=== PATIENT | male | born 1970 | race Hispanic/Latino ===

== ENCOUNTER 2024-12-15 14:22 | Emergency (ER) | payer SELFPAY ==
[~2024-12-15] VITALS: Ht 175.3 cm; Wt 81.6 kg
[2024-12-15] MEDS ORDERED: DIPH50CA38 PO (14:31)
--- NOTE | 2024-12-15 14:31 | ERN ---
ED Note History of Present Illness Stated Complaint: RASH Chief Complaint: Skin Rash/Abscess Time Seen by MD: 14:24 Dictation: PATIENT IS A 54-YEAR-OLD MALE COMING IN VIA EMS WITH COMPLAINTS OF A POSSIBLE ALLERGIC REACTION TO HIS LEFT LOWER BACK FLANK AREA HE HAS HAD FOR THREE DAYS. NO FEVER NO CHILLS NO NAUSEA VOMITING. NO SHORTNESS A BREATH NO ANGIOEDEMA. RASHES LOCALIZED TO HIS BACK. THERE WAS NO VESICLES IN HIS NON PAINFUL. PATIENT WAS GIVEN BENADRYL 50 MG PRIOR TO ARRIVAL. Allergies: Coded Allergies: No Known Drug Allergies (Unverified Allergy, Unknown, 09/23/24) Past Medical History Past Medical History: No Pertinent History Additional Past Medical Hx: SCHIZOPHRENIA Surgical History: None Surgical History Other: HERNIA MESH RN Note Reviewed/Agreed w/PFSH: Yes Review of System Dictation CONSTITUTIONAL: NEGATIVE EXCEPT FOR HPI HEAD/FACE: NEGATIVE EXCEPT FOR HPI EENT: NEGATIVE EXCEPT FOR HPI RESPIRATORY: NEGATIVE EXCEPT FOR HPI GASTROINTESTINAL/ABDOMINAL: NEGATIVE EXCEPT FOR HPI GENITOURINARY: NEGATIVE EXCEPT FOR HPI MUSCULOSKELETAL: NEGATIVE EXCEPT FOR HPI INTEGUMENTARY: NEGATIVE EXCEPT FOR HPI RASH TO FLANK LEFT NEUROLOGICAL/PSYCH: NEGATIVE EXCEPT FOR HPI HEMATOLOGIC/LYMPHATIC: NEGATIVE EXCEPT FOR HPI ALL SYSTEMS NEGATIVE, EXCEPT NOTED ABOVE. 13 POINT REVIEW OF SYSTEMS ASSESSED AND ALL NEGATIVE EXCEPT FOR ABOVE. Physical Exam Dictation VITAL SIGNS REVIEWED GENERAL APPEARANCE: ALERT, ORIENTED X 3, NO ACUTE DISTRESS, WELL DEVELOPED, NOURISHED. HEAD AND FACE: NON-TRAUMATIC. EYES: PERRL, PINK CONJUNCTIVAS, EYELID NO TRAUMA, ANTERIOR CHAMBER WITH ARCUS SENILIS. EARS: PINNAS INTACT AND NO SIGNS OF TRAUMA OR ERYTHEMA EAR CANALS CLEAR AND NO DISCHARGE TM NO ERYTHEMA NOSE: NO DISCHARGE, NO BLEEDING. OROPHARYNX: MOUTH NORMAL, TONGUE PINK, VOICE IS CLEAR, NO ANGIOEDEMA PHARYNX CLEAR,NO ERYTHEMA, TONSILS NO EXUDATES, NO ABSCESSES NOTED, MUCOUS MEMBRANE MOIST NECK: SUPPLE, NON-TENDER, NO THYROMEGALY, NO MASSES, NO JVD, NO BRUITS BREAST:DEFERRED CHEST:NO TENDERNESS, NO CREPITUS, NO PARADOXICAL MOVEMENT, NO RETRACTIONS LUNGS:CLEAR, WELL-VENTILATED, SYMMETRIC, NO RALES, NO WHEEZING, NO RHONCHI, NO STRIDOR, GOOD BREATH SOUNDS BILATERALLY NO TACHYPNEA NO RETRACTIONS HEART: REGULAR RATE, REGULAR RHYTHM, NO MURMUR, NO GALLOPS VASCULAR: NO PERIPHERAL EDEMA, ABDOMEN: SOFT, POSITIVE BOWEL SOUNDS, NONDISTENDED, NO GUARDING, NONTENDER, NO REBOUND, NO MASSES NO HEPATOMEGALY, NO SPLENOMEGALY, NO FREY'S SIGN, NO HERNIAS. RECTAL: DEFERRED GENITAL: DEFERRED NEUROLOGICAL: NORMAL SPEECH, MOTOR FUNCTION INTACT, SENSORY FUNCTION INTACT MUSCULOSKELETAL: NECK NONTENDER, LOCALIZE MACULAR RASH TO LEFT FLANK. NO VESICLES, NON PAINFUL LYMPHATIC: DEFERRED Results (Laboratory/Radiology) Labs Reviewed?: Yes ED Course ED Course Orders Procedure Category Date Status Time Dexamethasone 4mg/Ml PHA 12/15/24 Transmitted 1ml Vial (Dexametha 14:30 1430/PATIENT WILL BE TREATED FOR CONTACT DERMATITIS. HE HAS BEEN GIVEN BENADRYL 50 IV BY EMS. WE WILL BE GIVEN DECADRON AND REFERRED BACK TO HIS DOCTOR. NO LABS OR IMAGING INDICATED Medical Decision Making MDM MEDICAL DECISION-MAKING BASED ON EMPIRIC TREATMENT FOR A POSSIBLE CONTACT DERMATITIS. PATIENT RECEIVED BENADRYL 50 MG IV PUSH BY EMS. GIVEN DECADRON 8 MG IV DISCHARGED HOME WITH CONTACT DERMATITIS DX & DISP Disposition: Discharge Departure Impression: Primary Impression: Contact dermatitis Condition: Stable Scripts Diphenhydramine HCl (Benadryl) 50 Mg Cap 50 MG PO Q6H for itching/rash, #20 CAP 0 Refills Prov: FABI TRUJILLO 12/15/24 Additional Instructions: FOLLOW-UP WITH PRIMARY CARE PROVIDER IN 1 TO 2 DAYS. TAKE MEDICATIONS DIRECTED HERE IN THE EMERGENCY ROOM. OKAY TO CONTINUE HOME MEDICATIONS UNLESS OTHERWISE DISCUSSED DURING YOUR VISIT IN THE EMERGENCY ROOM TODAY. RETURN TO YOUR NEAREST EMERGENCY ROOM IF SYMPTOMS WORSEN OR IF THERE IS NO IMPROVEMENT. CALL 911 IF YOU NEED IMMEDIATE ASSISTANCE. TAKE TYLENOL OR MOTRIN [id number] NEEDED AND IF NO CONTRAINDICATIONS ARE PRESENT. INCREASE ORAL HYDRATION. A WOUND CULTURE OR URINE CULTURE WAS ORDERED HERE IN THE EMERG ENCY ROOM DEPARTMENT PLEASE FOLLOW-UP WITH PRIMARY CARE PROVIDER AND ADVISE THEM TO GET REPEAT PORTS FROM OUR FACILITY. IF YOU HAD ANY VLADISLAV WRAP/SPLINTS THAT WERE APPLIED HERE, PLEASE DO NOT REMOVE THEM UNTIL YOU SEE YOUR PRIMARY CARE OR SPECIALTY. TAKE BENADRYL 50 MG EVERY 6 HOURS FOR FOUR MORE DOSES. NEXT DOSE WE WILL BE 830 TONIGHT. SEE YOUR PRIMARY CARE DOCTOR FOR FOLLOW UP. Referrals: SELF,REFERRAL (PCP) Time of Disposition: 14:30 I have reviewed the case, and I agree with, Diagnosis and Plan FABI TRUJILLO [facility] Dec 15, 2024 14:31
[2024-12-15 14:44] VITALS: BP 131/76; PULSE 70; RESP 16; TEMP 98.4; O2SAT 98
== END 2024-12-15 15:18 | disposition home or self-care (01) ==
LOC: EDH 14:22
DX: L25.9 Unspecified contact dermatitis, unspecified cause (principal); F20.9 Schizophrenia, unspecified
CPT/HCPCS: 99283; 96374; J1100